=== PATIENT | male | born 1970 | race Caucasian/White ===

== ENCOUNTER 2016-09-18 16:56 | Emergency (ER) | payer OTHER ==
[2016-09-18 17:25] VITALS: RESP 20; TEMP 97.7
[2016-09-18] MEDS ORDERED: LIDOCAINE 2% VISCOUS 15 ML UDCUP PO ONE (17:33)
[2016-09-18] MEDS ORDERED: NS 1,000 ML IV ONE (17:33)
[2016-09-18] MEDS ORDERED: MAG HYDROX/AL HYDROX/SIMETH 30 ML UDCUP PO ONE (17:33)
[2016-09-18] MEDS ORDERED: ASPIRIN 81 MG CHEWABLE TAB PO ONE (17:37)
--- NOTE | 2016-09-18 17:37 | EDPHY ---
H & P Time Seen by Provider: 09/18/16 17:23 HPI/ROS: Described CHIEF COMPLAINT: Abdominal pain HISTORY OF PRESENT ILLNESS: Patient is a 46-year-old male who presents emergency department with multiple complaints. He states that on Thursday he felt like he developed "gastroenteritis" or the "flu." His symptoms have continued for the past few days. He now has epigastric discomfort that radiates into his chest substernally and bilaterally. At times he feels as though it is difficult to take a deep breath. His discomfort increases when he leans forward. He generally feels weak. He has mild lightheadedness and dizziness. Mild nausea with no vomiting. No diarrhea. No dysuria frequency. No cough. REVIEW OF SYSTEMS: My complete review of systems is negative except as mentioned in the HPI. Past Medical/Surgical History: Volvulus Past surgical history: Volvulus, hernia repair, foot surgery Social history: The patient does not smoke Smoking Status: Never smoked Physical Exam: Vitals noted GENERAL: Well-appearing, in no acute distress, alert. HEENT: Eyes normal to inspection, normal pharynx, no signs of dehydration. NECK: No thyromegaly, no lymphadenopathy, supple. RESPIRATORY: Clear to auscultation bilaterally, no rales, rhonchi or wheezing. CVS: Regular rate and rhythm, no rubs, murmurs, or gallops. Chest wall: [place] lower sternal tenderness to palpation of replicates his discomfort. ABDOMEN: Soft, nontender, nondistended, no organomegaly. BACK: Normal to inspection, no CVA tenderness. SKIN: Normal color, no rash, warm, dry. No pallor. EXTREMITIES: No pedal edema, no calf tenderness, no Homans sign or cords, no joint swelling. NEURO/PSYCH: Alert and oriented x3, normal mood and affect, normal motor sensory exam. Constitutional: Initial Vital Signs Temperature (C) 36.5 C 09/18/16 17:20 Heart Rate 74 09/18/16 17:20 Respiratory Rate 20 09/18/16 17:20 Blood Pressure 137/85 H 09/18/16 17:20 O2 Sat (%) 95 09/18/16 17:20 O2 Delivery Mode Room Air Allergies/Adverse Reactions: acetaminophen [From Percocet] Allergy (Verified 09/18/16 17:19) oxycodone [From Percocet] Allergy (Verified 09/18/16 17:19) Home Medications: Medication Instructions Recorded NK [No Known Home Meds] 09/18/16 Medical Decision Making - Diagnostics EKG Interpretation: EKG shows normal sinus rhythm, [normal rate, normal axis, normal intervals]. There are [no ST or T-wave abnormalities]. Patient has Q-waves I, aVL, V5 and V6, Imaging Results: Imaging Impressions Chest X-Ray 09/18/16 17:33 Impression: No evidence of acute cardiopulmonary abnormality. ED Course/Re-evaluation: In the emergency department I discussed possible etiologies. I answered all his questions. IV was placed. Laboratory studies were ordered. EKG and chest x-ray were ordered. Patient was given aspirin 324 mg orally for his complaints and GI cocktail for his discomfort. Patient was given normal saline IV for hydration. CBC was normal. Chemistry panel is unremarkable. Lipase LFTs were normal. Troponin was negative. Chest x-ray: Please refer the dictated report. No acute disease. I rechecked the patient on multiple occasions while here. He was stable during his stay. 1844: I discussed the results with the patient. Answered all his questions. Recheck his exam was benign. He was given warnings prior to leaving. He will follow up with his primary care physician. He has an appointment with accounting director on the . Differential Diagnosis: My differential includes but is not limited to ACS, acute [place], pericarditis, myocarditis, pneumonia, bronchitis, pancreatitis, cholecystitis, viral illness, volvulus, obstruction, intussusception - Data Points Laboratory Results: Laboratory Results 09/18/16 17:45 09/18/16 17:45 09/18/16 09/18/16 17:45 17:45 WBC 6.03 10^3/uL 10^3/uL (3.80-9.50) RBC 5.20 10^6/uL 10^6/uL (4.40-6.38) Hgb 16.0 g/dL g/dL (13.7-17.5) Hct 45.6 % % (40.0-51.0) MCV 87.7 fL fL (81.5-99.8) MCH 30.8 pg pg (27.9-34.1) MCHC 35.1 g/dL g/dL (32.4-36.7) RDW 12.4 % % (11.5-15.2) Plt Count 196 10^3/uL 10^3/uL (150-400) MPV 9.5 fL fL (8.7-11.7) Neut % (Auto) 51.1 % % (39.3-74.2) Lymph % (Auto) 37.6 % % (15.0-45.0) [place] % (Auto) 9.1 % % (4.5-13.0) Eos % (Auto) 1.5 % % (0.6-7.6) Baso % (Auto) 0.5 % % (0.3-1.7) Nucleat RBC Rel Count 0.0 % % (0.0-0.2) Absolute Neuts (auto) 3.08 10^3/uL 10^3/uL (1.70-6.50) Absolute Lymphs (auto) 2.27 10^3/uL 10^3/uL (1.00-3.00) Absolute Monos (auto) 0.55 10^3/uL 10^3/uL (0.30-0.80) Absolute Eos (auto) 0.09 10^3/uL 10^3/uL (0.03-0.40) Absolute Basos (auto) 0.03 10^3/uL 10^3/uL (0.02-0.10) Absolute Nucleated RBC 0.00 10^3/uL 10^3/uL (0-0.01) Immature Gran % 0.2 % % (0.0-1.1) Immature Gran # 0.01 10^3/uL 10^3/uL (0.00-0.10) Sodium 141 mEq/L mEq/L (134-144) Potassium 4.3 mEq/L mEq/L (3.5-5.2) Chloride 103 mEq/L mEq/L (97-110) Carbon Dioxide 27 mEq/l mEq/l (22-31) Anion Gap 11 mEq/L mEq/L (8-16) BUN 25 mg/dL H mg/dL (7-23) Creatinine 1.1 mg/dL mg/dL (0.7-1.3) Estimated GFR > 60 Glucose 97 mg/dL mg/dL (70-100) Calcium 9.7 mg/dL mg/dL (8.5-10.4) Total Bilirubin 0.9 mg/dL mg/dL (0.1-1.4) Conjugated Bilirubin 0.1 mg/dL mg/dL (0.0-0.5) Unconjugated Bilirubin 0.8 mg/dL mg/dL (0.0-1.1) AST 27 IU/L IU/L (17-59) ALT 49 IU/L IU/L (21-72) Alkaline Phosphatase 53 IU/L IU/L (38-126) Troponin I < 0.012 ng/mL ng/mL (0-0.034) Total Protein 7.2 g/dL g/dL (6.3-8.2) Albumin 4.3 g/dL g/dL (3.5-5.0) Lipase 79.0 IU/L IU/L (23-300) Medications Given: Discontinued Medications Al Hydroxide/Mg Hydroxide (Maalox Susp) 30 ml PO ONCE ONE Stop: 09/18/16 17:34 Last Admin: 09/18/16 17:57 Dose: 30 ml Aspirin (Aspirin) 324 mg PO EDNOW ONE Stop: 09/18/16 17:38 Last Admin: 09/18/16 17:50 Dose: 324 mg Sodium Chloride (Ns) 1,000 mls @ 0 mls/hr IV ONCE ONE; Wide Open PRN Reason: Protocol Stop: 09/18/16 17:34 Last Admin: 09/18/16 17:55 Dose: 1,000 mls Lidocaine (Lidocaine 2% Viscous) 15 ml PO ONCE ONE Stop: 09/18/16 17:34 Last Admin: 09/18/16 17:57 Dose: 15 ml Departure - Departure Disposition: Home, Routine, Self-Care Clinical Impression: Abdominal pain Qualifiers: Abdominal location: epigastric Qualified Code(s): R10.13 - Epigastric pain Condition: Good Instructions: Chest Pain (ED), Epigastric Pain (ED) Additional Instructions: Return with increasing pain, shortness of breath, fever, vomiting or any other concerns. Referrals: Betzaida Barboza MD [Medical Doctor] - 2-3 days without fail
[2016-09-18 17:49] LABS: % IMMATURE GRANULYOCYTES 0.2 % (0.0-1.1); ABSOLUTE IMMATURE GRANULOCYTES 0.01 10^3/uL (0.00-0.10); ADD DIFF? NO; ADD MORPH? NO; ADD SCAN? NO; ATYPICAL LYMPHOCYTE FLAG 10 (0-99); FRAGMENT RBC FLAG 0 (0-99); HEMATOCRIT 45.6 % (40.0-51.0); LEFT SHIFT FLG 0 (0-99); LIPEMIA HEMOLYSIS FLAG 90 (0-99); MEAN CELL HEMOGLOBIN 30.8 pg (27.9-34.1); MEAN CELL HEMOGLOBIN CONCENTR. 35.1 g/dL (32.4-36.7); MEAN CELL VOLUME 87.7 fL (81.5-99.8); MEAN PLATELET VOLUME 9.5 fL (8.7-11.7); PLATELET CLUMPS FLAG 10 (0-99); PLATELET COUNT 196 10^3/uL (150-400); RED CELL DISTRIBUTION WIDTH 12.4 % (11.5-15.2)
[2016-09-18 18:02] LABS: ANION GAP 11 mEq/L (8-16); CARBON DIOXIDE 27 mEq/l (22-31); CHLORIDE 103 mEq/L (97-110); CREATININE 1.1 mg/dL (0.7-1.3); GLOMERULAR FILTRATION RATE > 60; GLUCOSE 97 mg/dL (70-100); POTASSIUM 4.3 mEq/L (3.5-5.2); SODIUM 141 mEq/L (134-144)
[2016-09-18 18:03] LABS: ALANINE AMINOTRANSFERASE 49 IU/L (21-72); ALBUMIN 4.3 g/dL (3.5-5.0); ALKALINE PHOSPHATASE 53 IU/L (38-126); ASPARTATE AMINOTRANSFERASE 27 IU/L (17-59); BILIRUBIN,TOTAL 0.9 mg/dL (0.1-1.4); BILIRUBIN-CONJUGATED 0.1 mg/dL (0.0-0.5); BILIRUBIN-UNCONJUGATED 0.8 mg/dL (0.0-1.1); CALCIUM 9.7 mg/dL (8.5-10.4); TOTAL PROTEIN 7.2 g/dL (6.3-8.2)
[2016-09-18 18:13] LABS: TROPONIN I < 0.012 ng/mL (0-0.034)
[2016-09-18 19:14] VITALS: BP 125/81; PULSE 70; O2SAT 96
--- NOTE | 2016-09-19 12:19 | CPEKG ---
Heart Rate: 66 RR Interval: 909 P-R Interval: 160 QRSD Interval: 100 QT Interval: 420 QTC Interval: 441 P [place]: 58 QRS [place]: 25 T Wave [place]: 32 EKG Severity - BORDERLINE ECG - EKG Impression: SINUS RHYTHM EKG Impression: PROBABLE LATERAL INFARCT, OLD Electronically Signed By: Elmer Ruvalcaba 21-Sep-2016 06:45:42
== END 2016-09-18 19:13 | disposition home or self-care (01) ==
LOC: CED 16:56
DX: R10.13 Epigastric pain (principal); E86.9 Volume depletion, unspecified
CPT/HCPCS: 71020-PO; 80048-PO; 80076-PO; 83690-PO; 84484-PO; 85025-PO